=== PATIENT | male | born 1965 | race Caucasian/White ===

== ENCOUNTER → 2018-01-03 | Outpatient (CLI) | payer OTHER | LOC: COL.RAD 09:39 | DX: Z02.71 Encounter for disability determination (principal); M17.11 Unilateral primary osteoarthritis, right knee; M47.816 Spondylosis without myelopathy or radiculopathy, lumbar region ==

== ENCOUNTER 2018-02-22 15:00 | Emergency (ER) | payer SELFPAY ==
[~2018-02-22] VITALS: Ht 170.2 cm; Wt 104.5 kg
[2018-02-22 15:08] VITALS: TEMP 98
[2018-02-22 15:22] LABS: COLLECTION METHOD CLEAN CATCH
[2018-02-22 15:39] LABS: MUCOUS Present /lpf; PH 5 (5-8); SQUAMOUS EPITHELIAL 0-2 /hpf; URINE APPEARANCE Hazy; URINE BACTERIA None Seen /hpf; URINE BILIRUBIN Negative (NEGATIVE); URINE BLOOD Negative (NEGATIVE); URINE COLOR Amber; URINE GLUCOSE Negative (NEGATIVE); URINE KETONE Negative (NEGATIVE); URINE LEUKOCYTE ESTERASE Negative (NEGATIVE); URINE NITRATE Negative (NEGATIVE); URINE PROTEIN(semi-quant) 1+ (NEGATIVE); URINE RBC 0-2 /hpf
[2018-02-22 16:18] LABS: BASO # 0.1 (0.0-0.2); BASO % 0.7 % (0.0-2.0); EOS # 0.2 (0.0-0.7); EOS % 1.6 % (0-4.0); GRAN # 5.9 (1.4-6.5); GRAN % 63.1 % (42.2-75.2); HEMOGLOBIN 15.5 g/dl (13.5-18.0); LYMPH # 2.6 (1.2-3.4); LYMPH % 27.1 % (20.0-51.0); MEAN CELL VOLUME 87 fl (80.0-100.0); MEAN CORPUSCULAR HEMOGLOBIN 31 pg (27.0-31.0); MEAN CORPUSCULAR HGB CONC 35 g/dl (33.0-37.0); MEAN PLATELET VOLUME 10.5 fl (7.4-10.4); MONO # 0.7 (0.1-0.6); MONO % 7.1 % (1.7-9.3); PLATELET COUNT 284 K/mm3 (130-400); RED BLOOD COUNT 5.04 M/mm3 (4.20-5.60); REDCELL DISTRIBUTION WIDTH-CV 13.8 % (11.5-14.5)
[2018-02-22 16:31] LABS: ALBUMIN 3.8 gm/dL (3.5-5.0); BILIRUBIN,TOTAL 0.5 mg/dL (0.0-1.0); CREATININE, serum 1.14 mg/dL (0.66-1.25); POTASSIUM 3.3 mmol/L (3.4-5.0); TOTAL PROTEIN 7.1 gm/dL (6.4-8.2)
[2018-02-22] MEDS ORDERED: BRINTELLIX20 (17:06)
[2018-02-22] MEDS ORDERED: NEURONTIN300 MG/CAP PO (17:06)
[2018-02-22] MEDS ORDERED: REXULTI1 MG PO (17:07)
[2018-02-22] MEDS ORDERED: VIVLODEX10 MG PO (17:08)
[2018-02-22 18:18] VITALS: BP 146/114; PULSE 86
== END 2018-02-22 18:18 | disposition home or self-care (01) ==
LOC: COL.ER 15:00
PROVIDERS: Emergency Medicine
DX: R10.9 Unspecified abdominal pain (principal); I10 Essential (primary) hypertension; M79.7 Fibromyalgia; F17.210 Nicotine dependence, cigarettes, uncomplicated; Z90.89 Acquired absence of other organs; Z87.442 Personal history of urinary calculi; Z90.49 Acquired absence of other specified parts of digestive tract
CPT/HCPCS: J1885; J2270; J2405; J7030; Q9967

== ENCOUNTER → 2018-06-24 | Outpatient (CLI) | payer BC ==
[~2018-06-24] MED LIST: BRINTELLIX20; NEURONTIN300 MG/CAP PO; REXULTI1 MG PO; VIVLODEX10 MG PO
== END ==
LOC: MC.RAD 08:49
DX: N62 Hypertrophy of breast (principal)

== ENCOUNTER 2018-08-19 15:36 | Emergency (ER) | payer BC ==
[~2018-08-19] VITALS: Ht 167.6 cm; Wt 101.4 kg
[~2018-08-19 15:36] MED LIST changes: -BRINTELLIX20; +BRINTELLIX20 PO
[2018-08-19 15:40] VITALS: TEMP 97.1
[2018-08-19 16:06] LABS: BASO # 0.1 (0.0-0.2); BASO % 0.4 % (0.0-2.0); EOS # 0.2 (0.0-0.7); EOS % 1.2 % (0-4.0); GRAN # 12.1 (1.4-6.5); GRAN % 71.4 % (42.2-75.2); HEMATOCRIT 49.4 % (42.0-52.0); LYMPH # 3.5 (1.2-3.4); LYMPH % 20.8 % (20.0-51.0); MEAN CELL VOLUME 89 fl (80.0-100.0); MEAN CORPUSCULAR HEMOGLOBIN 31 pg (27.0-31.0); MEAN CORPUSCULAR HGB CONC 34 g/dl (33.0-37.0); MEAN PLATELET VOLUME 9.6 fl (7.4-10.4); MONO % 5.7 % (1.7-9.3); PLATELET COUNT 369 K/mm3 (130-400); RED BLOOD COUNT 5.55 M/mm3 (4.20-5.60); REDCELL DISTRIBUTION WIDTH-CV 14.2 % (11.5-14.5)
[2018-08-19] MEDS ORDERED: LOPRESSOR 550 MG/TAB PO (16:06)
[2018-08-19 16:08] LABS: PROTHROMBIN TIME 11.5 SECONDS (9.7-12.8)
[2018-08-19 16:11] LABS: ALANINE AMINOTRANSFERASE 29 U/L (21-72); ALBUMIN 4.3 gm/dL (3.5-5.0); ALKALINE PHOSPHATASE 93 U/L (50-136); ANION GAP 10 mmol/L (7-16); AST,SGOT 23 U/L (15-37); BILIRUBIN,TOTAL 0.5 mg/dL (0.0-1.0); BLOOD UREA NITROGEN 13 mg/dL (9-20); CALCIUM 9.7 mg/dL (8.4-10.2); CARBON DIOXIDE 21 mmol/L (22-30); CHLORIDE 112 mmol/L (98-107); CREATINE KINASE 49 U/L (55-170); GLUCOSE 128 mg/dL (74-106); LIPASE 56 U/L (23-300); POTASSIUM 3.5 mmol/L (3.4-5.0); SODIUM 142 mmol/L (137-145); TOTAL PROTEIN 7.5 gm/dL (6.4-8.2)
[2018-08-19 16:23] LABS: TROPONIN-I < 0.012 ng/mL (0.000-0.034)
[2018-08-19 16:57] VITALS: BP 97/72; PULSE 110
== END 2018-08-19 17:10 | disposition short-term general hospital (02) ==
LOC: COL.ER 15:36
PROVIDERS: Emergency Medicine
DX: I10 Essential (primary) hypertension (principal); I20.0 Unstable angina; F32.9 Major depressive disorder, single episode, unspecified; Z87.442 Personal history of urinary calculi; Z90.49 Acquired absence of other specified parts of digestive tract; Z88.2 Allergy status to sulfonamides
CPT/HCPCS: J1644; J2405; J3010; J7030

== ENCOUNTER 2018-08-24 16:29 | Emergency (ER) | payer BC ==
[~2018-08-24] VITALS: Ht 170.2 cm; Wt 99.5 kg
[~2018-08-24 16:29] MED LIST changes: +LOPRESSOR 550 MG/TAB PO
[2018-08-24 16:36] VITALS: TEMP 97.4
[2018-08-24 17:13] LABS: BASO # 0.1 (0.0-0.2); BASO % 0.5 % (0.0-2.0); EOS # 0.4 (0.0-0.7); EOS % 3.8 % (0-4.0); GRAN % 61.4 % (42.2-75.2); HEMOGLOBIN 15.8 g/dl (13.5-18.0); LYMPH # 2.9 (1.2-3.4); LYMPH % 25.3 % (20.0-51.0); MEAN CELL VOLUME 90 fl (80.0-100.0); MEAN CORPUSCULAR HEMOGLOBIN 31 pg (27.0-31.0); MEAN CORPUSCULAR HGB CONC 34 g/dl (33.0-37.0); MEAN PLATELET VOLUME 9.9 fl (7.4-10.4); MONO % 8.3 % (1.7-9.3); PLATELET COUNT 372 K/mm3 (130-400); RED BLOOD COUNT 5.13 M/mm3 (4.20-5.60)
[2018-08-24] MEDS ORDERED: COZAAR 50MG50 MG/TAB PO (17:19)
[2018-08-24 17:22] LABS: ALBUMIN 3.9 gm/dL (3.5-5.0); BILIRUBIN,TOTAL 0.6 mg/dL (0.0-1.0); CALCIUM 9.6 mg/dL (8.4-10.2); CREATININE, serum 1.04 mg/dL (0.66-1.25); TOTAL PROTEIN 7.3 gm/dL (6.4-8.2)
[2018-08-24] MEDS ORDERED: WELLBUTRIN XL150 MG PO (17:23)
[2018-08-24] MEDS ORDERED: DESYREL 100MG100 MG PO (17:27)
[2018-08-24 17:33] LABS: TROPONIN-I 0.029 ng/mL (0.000-0.034)
[2018-08-24 21:30] VITALS: BP 102/74; PULSE 71
== END 2018-08-24 22:00 | disposition short-term general hospital (02) ==
LOC: COL.ER 16:29
PROVIDERS: Emergency Medicine
DX: I20.0 Unstable angina (principal); E78.5 Hyperlipidemia, unspecified; I10 Essential (primary) hypertension; F17.210 Nicotine dependence, cigarettes, uncomplicated; Z85.828 Personal history of other malignant neoplasm of skin
CPT/HCPCS: J1644; J2270; J2405; J7030

== ENCOUNTER → 2018-09-02 | Outpatient (CLI) | payer BC ==
[~2018-09-02] MED LIST changes: +COZAAR 50MG50 MG/TAB PO; +DESYREL 100MG100 MG PO; +WELLBUTRIN XL150 MG PO
== END ==
LOC: COL.RAD 07:04
DX: N20.1 Calculus of ureter (principal); Z90.49 Acquired absence of other specified parts of digestive tract

== ENCOUNTER 2019-06-07 22:12 | Emergency (ER) | payer SELFPAY ==
[~2019-06-07] VITALS: Ht 170.2 cm; Wt 96.8 kg
[2019-06-07 22:41] VITALS: TEMP 98.2
[2019-06-07 23:34] LABS: BASO # 0.1 (0.0-0.2); BASO % 0.6 % (0.0-2.0); EOS # 0.2 (0.0-0.7); EOS % 2.5 % (0-4.0); GRAN # 5.6 (1.4-6.5); GRAN % 69.3 % (42.2-75.2); HEMATOCRIT 49.2 % (42.0-52.0); HEMOGLOBIN 16.8 g/dl (13.5-18.0); LYMPH # 1.4 (1.2-3.4); LYMPH % 17.1 % (20.0-51.0); MEAN CELL VOLUME 90 fl (80.0-100.0); MEAN CORPUSCULAR HEMOGLOBIN 31 pg (27.0-31.0); MEAN CORPUSCULAR HGB CONC 34 g/dl (33.0-37.0); MEAN PLATELET VOLUME 10.2 fl (7.4-10.4); MONO # 0.8 (0.1-0.6); MONO % 10.1 % (1.7-9.3); PLATELET COUNT 290 K/mm3 (130-400); RED BLOOD COUNT 5.44 M/mm3 (4.20-5.60); REDCELL DISTRIBUTION WIDTH-CV 14.3 % (11.5-14.5)
[2019-06-07 23:41] LABS: ALANINE AMINOTRANSFERASE 13 U/L (21-72); ALBUMIN 4.2 gm/dL (3.5-5.0); ALKALINE PHOSPHATASE 93 U/L (50-136); ANION GAP 12 mmol/L (7-16); AST,SGOT 29 U/L (15-37); BILIRUBIN,TOTAL 0.4 mg/dL (0.0-1.0); BLOOD UREA NITROGEN 15 mg/dL (9-20); CALCIUM 9.2 mg/dL (8.4-10.2); CARBON DIOXIDE 22 mmol/L (22-30); CHLORIDE 107 mmol/L (98-107); CREATININE, serum 0.94 (0.66-1.25); GLUCOSE 103 mg/dL (74-106); LIPASE 126 U/L (23-300); POTASSIUM 3.5 mmol/L (3.4-5.0); SODIUM 140 mmol/L (137-145); TOTAL PROTEIN 7.4 gm/dL (6.4-8.2)
[2019-06-07 23:53] LABS: TROPONIN-I < 0.012 ng/mL (0.000-0.035)
[2019-06-08 00:29] VITALS: BP 158/122; PULSE 92
[2019-06-08] MEDS ORDERED: DOXYCYCLINE HY100 MG PO (01:31)
[2019-06-08] MEDS ORDERED: ZOFRAN 4MG T4 MG/TAB PO (01:31)
[2019-06-08] MEDS ORDERED: PRINZIDE 25 MG-1 TAB PO (01:43)
== END 2019-06-08 01:50 | disposition home or self-care (01) ==
LOC: COL.ER 22:12
PROVIDERS: Emergency Medicine
DX: B34.9 Viral infection, unspecified (principal); I10 Essential (primary) hypertension; F17.210 Nicotine dependence, cigarettes, uncomplicated
CPT/HCPCS: J2405; J7030

== ENCOUNTER 2019-08-24 18:45 | Emergency (ER) | payer OTHER ==
[~2019-08-24] VITALS: Ht 170.2 cm; Wt 97.7 kg
[~2019-08-24 18:45] MED LIST changes: +DOXYCYCLINE HY100 MG PO; +PRINZIDE 25 MG-1 TAB PO; +ZOFRAN 4MG T4 MG/TAB PO
[2019-08-24 18:49] VITALS: BP 169/108; TEMP 97.9
[2019-08-24] MEDS ORDERED: PRIL40 PO (19:14)
[2019-08-24 20:05] VITALS: PULSE 72
== END 2019-08-24 20:15 | disposition home or self-care (01) ==
LOC: COL.ER 18:45
DX: S63.501A Unspecified sprain of right wrist, initial encounter (principal); X50.9XXA Other and unspecified overexertion or strenuous movements or postures, initial encounter; Y92.59 Other trade areas as the place of occurrence of the external cause

== ENCOUNTER 2019-10-07 12:35 | Emergency (ER) | payer SELFPAY ==
[~2019-10-07] VITALS: Ht 170.2 cm; Wt 100.5 kg
[~2019-10-07 12:35] MED LIST changes: +PRIL40 PO
[2019-10-07 13:05] VITALS: BP 167/109; TEMP 97.2
[2019-10-07] MEDS ORDERED: PROAIR HFA0.09 MG/AC IH (13:34)
[2019-10-07 13:47] VITALS: PULSE 102
== END 2019-10-07 13:47 | disposition home or self-care (01) ==
LOC: COL.ER 12:35
DX: J11.1 Influenza due to unidentified influenza virus with other respiratory manifestations (principal); F17.210 Nicotine dependence, cigarettes, uncomplicated

== ENCOUNTER 2019-10-17 01:52 | Emergency (ER) | payer SELFPAY ==
[~2019-10-17] VITALS: Ht 170.2 cm; Wt 96.8 kg
[~2019-10-17 01:52] MED LIST changes: +PROAIR HFA0.09 MG/AC IH
[2019-10-17 01:59] VITALS: TEMP 98.9
[2019-10-17 02:41] LABS: BASO % 0.4 % (0.0-2.0); EOS % 0.2 % (0-4.0); GRAN # 3.2 (1.4-6.5); GRAN % 64.8 % (42.2-75.2); HEMATOCRIT 48.9 % (42.0-52.0); HEMOGLOBIN 16.7 g/dl (13.5-18.0); LYMPH # 0.8 (1.2-3.4); MEAN CELL VOLUME 92 fl (80.0-100.0); MEAN CORPUSCULAR HEMOGLOBIN 31 pg (27.0-31.0); MEAN CORPUSCULAR HGB CONC 34 g/dl (33.0-37.0); MEAN PLATELET VOLUME 10.6 fl (7.4-10.4); MONO # 0.9 (0.1-0.6); PLATELET COUNT 235 K/mm3 (130-400); RED BLOOD COUNT 5.34 M/mm3 (4.20-5.60); REDCELL DISTRIBUTION WIDTH-CV 14.2 % (11.5-14.5)
[2019-10-17 02:50] LABS: ALBUMIN 4.5 gm/dL (3.5-5.0); BILIRUBIN,TOTAL 0.7 mg/dL (0.0-1.0); CALCIUM 9.3 mg/dL (8.4-10.2); CREATININE, serum 1.15 (0.66-1.25); POTASSIUM 3.6 mmol/L (3.4-5.0); TOTAL PROTEIN 7.6 gm/dL (6.4-8.2)
[2019-10-17 03:01] LABS: TROPONIN-I 0.019 ng/mL (0.000-0.035)
[2019-10-17] MEDS ORDERED: TAMIFLU 75MG75 MG PO (05:42)
[2019-10-17] MEDS ORDERED: ZOFRAN ODT4 MG PO (05:43)
[2019-10-17 06:50] VITALS: BP 130/72; PULSE 88
== END 2019-10-17 06:50 | disposition home or self-care (01) ==
LOC: COL.ER 01:52
PROVIDERS: Nurse Practitioner
DX: J10.1 Influenza due to other identified influenza virus with other respiratory manifestations (principal); I10 Essential (primary) hypertension; F17.210 Nicotine dependence, cigarettes, uncomplicated; Z90.89 Acquired absence of other organs; Z87.442 Personal history of urinary calculi
CPT/HCPCS: J1170; J1885; J2405; J2550; J7030

== ENCOUNTER 2019-10-20 13:09 | Emergency (ER) | payer SELFPAY ==
[~2019-10-20] VITALS: Ht 170.2 cm; Wt 96.8 kg
[~2019-10-20 13:09] MED LIST changes: +TAMIFLU 75MG75 MG PO; +ZOFRAN ODT4 MG PO
[2019-10-20 13:24] VITALS: TEMP 97.8
[2019-10-20 14:29] LABS: HEMATOCRIT 50.4 % (42.0-52.0); HEMOGLOBIN 17.5 g/dl (13.5-18.0); MEAN CELL VOLUME 91 fl (80.0-100.0); MEAN CORPUSCULAR HEMOGLOBIN 32 pg (27.0-31.0); MEAN CORPUSCULAR HGB CONC 35 g/dl (33.0-37.0); MEAN PLATELET VOLUME 10.5 fl (7.4-10.4); PLATELET COUNT 246 K/mm3 (130-400); RED BLOOD COUNT 5.52 M/mm3 (4.20-5.60); REDCELL DISTRIBUTION WIDTH-CV 14.2 % (11.5-14.5)
[2019-10-20 14:36] LABS: ALANINE AMINOTRANSFERASE 56 U/L (21-72); ALBUMIN 4.1 gm/dL (3.5-5.0); ALKALINE PHOSPHATASE 78 U/L (50-136); ANION GAP 9 mmol/L (7-16); AST,SGOT 68 U/L (15-37); BILIRUBIN,TOTAL 0.7 mg/dL (0.0-1.0); BLOOD UREA NITROGEN 10 mg/dL (9-20); CALCIUM 9.2 mg/dL (8.4-10.2); CARBON DIOXIDE 25 mmol/L (22-30); CHLORIDE 107 mmol/L (98-107); CREATININE, serum 0.75 (0.66-1.25); GLUCOSE 99 mg/dL (74-106); POTASSIUM 3.8 mmol/L (3.4-5.0); SODIUM 141 mmol/L (137-145); TOTAL PROTEIN 7.1 gm/dL (6.4-8.2)
[2019-10-20 14:49] LABS: TROPONIN-I < 0.012 ng/mL (0.000-0.035)
[2019-10-20] MEDS ORDERED: TESSALON PERLE200 MG PO (15:03)
[2019-10-20 15:36] VITALS: BP 151/104; PULSE 77
[2019-10-20 16:40] LABS: BAND 1 % (0-10); LYMPHOCYTE 38 % (20.0-51.0); NEUTROPHILS 58 % (42.0-75.2); PLATELET ESTIMATE NORMAL (NORMAL)
== END 2019-10-20 15:37 | disposition home or self-care (01) ==
LOC: COL.ER 13:09
PROVIDERS: Physician Assistant
DX: J10.1 Influenza due to other identified influenza virus with other respiratory manifestations (principal); R07.9 Chest pain, unspecified; I10 Essential (primary) hypertension; F17.210 Nicotine dependence, cigarettes, uncomplicated
CPT/HCPCS: J2270; J2405; J7030